=== PATIENT | female | born 1995 | race Caucasian/White ===

== ENCOUNTER → 2020-07-21 07:51 | Outpatient (CLI) | payer OTHER, SELFPAY ==
[2020-07-21 08:33] LABS: Basophils % 0.8 % (0.1-2.0); Eosinophils # 0.3 K/mm3 (0.0-0.4); Eosinophils % 4.7 % (0.1-12.0); Hematocrit 35.5 % (37.0-47.0); Hemoglobin 11.4 g/dL (12.2-16.2); Lymphocytes # 1.8 K/mm3 (0.7-4.5); Lymphocytes % 29.9 % (10-50); Mean Corpuscular HGB Conc 32.1 g/dL (31.8-35.4); Mean Corpuscular Hemoglobin 24.4 pg (27.0-31.2); Mean Corpuscular Volume 75.8 fl (81-99); Mean Platelet Volume 8.6 fl (7.4-10.4); Monocytes # 0.5 K/mm3 (0.1-1.0); Monocytes % 8.6 % (1.7-9.3); Neutrophils # 3.3 K/mm3 (1.8-7.8); Neutrophils % 56.1 % (37.0-80.0); Platelet Count 246 K/mm3 (142-424); Red Blood Count 4.69 M/mm3 (4.20-5.40); Red Cell Distribution Width 14.8 % (11.5-17.5); White Blood Count 5.9 K/mm3 (4.8-10.8)
[2020-07-21 11:58] LABS: Chloride 104 mmol/L (98-107); Potassium 4.1 mmoL/L (3.5-5.1); Sodium 139 mmol/L (136-145)
[2020-07-21 12:00] LABS: Alanine Aminotransferase 14 U/L (12-78); Aspartate Amino Transferase 20 U/L (14-36); Bilirubin,Total 0.8 mg/dl (0.2-1.3); Blood Urea Nitrogen 12 mg/dl (7-17); Estimated Glomerular Filt Rate 120 ml/min (>60); GFR (African American) 145 ML/MIN (>60)
[2020-07-21 12:01] LABS: Albumin Level 4.3 g/dl (3.5-5.0); Albumin/Globulin Ratio 1.4 (1.1-1.8); Alkaline Phosphatase 59 U/L (38-126); Anion Gap 15.1 mEq/L (5-15); Calcium 9.3 mg/dl (8.4-10.2); Carbon Dioxide 24 mmol/L (22.0-30.0); Chol/HDL Ratio 2.9 (1-3.5); Cholesterol 184 mg/dl (140-200); Glucose 89 mg/dl (74-100); HDL Cholesterol 63 mg/dl (40-60); Total Protein,Serum 7.3 g/dl (6.3-8.2); Triglycerides 60 mg/dl (30-150); VLDL Cholesterol 12 mg/dL (0-40)
[2020-07-21 12:09] LABS: 25-OH Vitamin D, Total 40.6 ng/mL (30-100)
[2020-07-21 12:12] LABS: Direct LDL Cholesterol 105.77 mg/dL (100-129)
[2020-07-21 13:30] LABS: Vitamin B12 700 pg/mL (239-931)
[2020-07-21 13:36] LABS: Thyroid Stimulating Hormone 2.58 uIU/mL (0.465-4.68)
[2020-07-25 20:12] LABS: Ferritin 4.97 ng/ml (6.24-137)
[2020-07-27 10:59] LABS: Iron 53 ug/dL (37-170)
[2020-07-27 11:09] LABS: Total Iron Binding Capacity 468 ug/dL (265-497)
== END ==
PROVIDERS: Visit Provider Internal Medicine Adolescent Medicine
DX: D64.9 Anemia, unspecified (principal); D50.9 Iron deficiency anemia, unspecified
CPT/HCPCS: 36415; 80053; 80061; 82306; 82607; 82728; 83540; 83550; 84443; 85025

== ENCOUNTER → 2022-12-21 15:55 | Outpatient (CLI) | payer OTHER, SELFPAY ==
--- NOTE | 2022-12-21 16:02 | XR_ITS ---
FINAL REPORT CLINICAL HISTORY: FOOT PAIN FINDINGS: Right foot Three views were obtained. There is no acute fracture or dislocation. The joint spaces appear normal. No soft tissue abnormality is identified. IMPRESSION: No acute process. Reviewed, Interpreted and Dictated by Van Ceballos III, MD Transcribed by Lauren Michelle Authenticated and [facility]
--- NOTE | 2022-12-21 16:02 | XR_ITS ---
FINAL REPORT CLINICAL HISTORY: SPRAIN OF RIGHT ANKLE FINDINGS: Right ankle Three views were obtained. There is no acute fracture or dislocation. The joint spaces appear normal. No soft tissue abnormality is identified. IMPRESSION: No acute process. Reviewed, Interpreted and Dictated by Van Ceballos III, MD Transcribed by Lauren Michelle Authenticated and [facility]
== END ==
PROVIDERS: PCP Internal Medicine Adolescent Medicine; Visit Provider Internal Medicine Adolescent Medicine
DX: M79.671 Pain in right foot (principal); M25.571 Pain in right ankle and joints of right foot; S93.401S Sprain of unspecified ligament of right ankle, sequela
CPT/HCPCS: 73610; 73630

== ENCOUNTER → 2023-01-25 15:34 | Outpatient (CLI) | payer OTHER, SELFPAY ==
--- NOTE | 2023-01-25 15:39 | MR_ITS ---
PROCEDURE INFORMATION: Exam: MR Right Lower Extremity Joint Without Contrast; Ankle Exam date and time: 01/25/2023 3:57 PM Age: 28 years old Clinical indication: Pain; Ankle; Right; Additional info: Sprain of right ankle TECHNIQUE: Imaging protocol: Magnetic resonance imaging of the right lower extremity without contrast. Exam focused on the ankle. COMPARISON: CR XR ANKLE WT BEARING RT MIN 3V 12/21/2022 4:10 PM FINDINGS: Bones/joints: No fracture or suspicious marrow signal. The medial and lateral support ligaments are intact. Otherwise unremarkable. LIGAMENTS: Distal tibiofibular syndesmosis: Unremarkable. No tear. Anterior talofibular ligament: Unremarkable. No tear. Posterior talofibular ligament: Unremarkable. No tear. Calcaneofibular ligament: Unremarkable. No tear. Deltoid ligament complex: Unremarkable. No tear. TENDONS: Flexor tendons of foot: Unremarkable as visualized. Tibialis posterior tendon: Unremarkable as visualized. Peroneal tendons: Unremarkable as visualized. Extensor tendons of foot: Unremarkable as visualized. Tibialis anterior tendon: Unremarkable as visualized. Achilles tendon: Unremarkable as visualized. Tarsal canal (Sinus tarsi): Unremarkable. Normal signal of the fat. Tarsal tunnel: Unremarkable. Muscles: Unremarkable. Soft tissues: Unremarkable. Plantar fascia: Plantar fascia is unremarkable. IMPRESSION: 1. No fracture or suspicious marrow signal. 2. The medial and lateral support ligaments are intact. 3. Otherwise unremarkable.
--- NOTE | 2023-01-25 15:40 | MR_ITS ---
PROCEDURE INFORMATION: Exam: MR Right Lower Extremity Other Than Joint Without Contrast; Foot Exam date and time: 01/25/2023 3:57 PM Age: 28 years old Clinical indication: Pain; Foot; Right; Additional info: Sprain of right ankle/ foot TECHNIQUE: Imaging protocol: Magnetic resonance imaging of the right lower extremity without contrast. Exam focused on the foot. COMPARISON: CR XR FOOT WT BEARING RT 3V 12/21/2022 4:10 PM FINDINGS: Bones/joints: No fracture or suspicious marrow signal. Otherwise unremarkable. LIGAMENTS: Lisfranc ligament: Unremarkable. No evidence of tear. TENDONS: Flexor tendons of foot: Unremarkable. No evidence of tear. Tibialis posterior tendon: Unremarkable as visualized. Peroneal tendons: Unremarkable as visualized. Extensor tendons of foot: Unremarkable. No evidence of tear. Tibialis anterior tendon: Unremarkable as visualized. Tarsal canal (Sinus tarsi): Unremarkable. Tarsal tunnel: Unremarkable. Muscles: No visualized tendinous or ligamentous pathology. Soft tissues: Unremarkable. Plantar fascia: Unremarkable as visualized. IMPRESSION: 1. No fracture or suspicious marrow signal. 2. No visualized tendinous or ligamentous pathology. 3. Otherwise unremarkable.
== END ==
PROVIDERS: PCP Internal Medicine Adolescent Medicine; Visit Provider Internal Medicine Adolescent Medicine
DX: M25.571 Pain in right ankle and joints of right foot (principal); S93.401S Sprain of unspecified ligament of right ankle, sequela
CPT/HCPCS: 73718; 73721

== ENCOUNTER → 2023-06-28 09:43 | Outpatient (CLI) | payer OTHER, SELFPAY ==
--- NOTE | 2023-06-28 09:48 | MR_ITS ---
FINAL REPORT CLINICAL HISTORY: STRAIN OF RIGHT ACHILLES TENDON. INSTABILITY IN ANKLE. MEDIAL AND POSTERIOR ANKLE PAIN COMPARISON: 01/25/2023 FINDINGS: Multiplanar MR imaging of the right ankle was performed without contrast. The bony structures are intact without evidence of fracture, bone bruise or marrow edema. No osteochondral lesion is identified. The mortise is intact. The ligaments are intact without evidence of injury. The Achilles tendon is intact. The supporting tendons about the ankle are intact. The posterior plantar aponeurosis is intact. No significant joint effusion is seen. The musculature is intact. There is no evidence of soft tissue mass or cyst. IMPRESSION: No significant internal derangement. Reviewed, Interpreted and Dictated by Scottie Rodriguez MD Transcribed by Glendy Shelby Authenticated and [facility]
== END ==
LOC: RAD 09:43
PROVIDERS: PCP Internal Medicine Adolescent Medicine; Visit Provider Podiatrist Foot & Ankle Surgery
DX: S86.011S Strain of right Achilles tendon, sequela (principal)
CPT/HCPCS: 73721

== ENCOUNTER 2024-02-03 08:44 | Outpatient (CLI) | payer OTHER, SELFPAY ==
[2024-02-03 09:41] LABS: Basophils # 0.1 K/mm3 (0-0.2); Basophils % 1.4 % (0.1-2.0); Eosinophils # 0.2 K/mm3 (0.0-0.4); Eosinophils % 4.5 % (0.1-12.0); Lymphocytes # 1.7 K/mm3 (0.7-4.5); Lymphocytes % 38.6 % (10-50); Mean Corpuscular HGB Conc 31.8 g/dL (31.8-35.4); Mean Corpuscular Hemoglobin 27.1 pg (27.0-31.2); Mean Corpuscular Volume 85.3 fl (81-99); Monocytes # 0.3 K/mm3 (0.1-1.0); Monocytes % 6.6 % (1.7-9.3); Neutrophils # 2.2 K/mm3 (1.8-7.8); Neutrophils % 48.8 % (37.0-80.0); Platelet Count 271 K/mm3 (142-424); Red Blood Count 5.16 M/mm3 (4.20-5.40); Red Cell Distribution Width 13.4 % (11.5-17.5); White Blood Count 4.5 K/mm3 (4.8-10.8)
[2024-02-03 10:17] LABS: Erythrocyte Sedimentation Rate 6 mm/hr (0-20)
[2024-02-03 10:32] LABS: Anion Gap 11.7 mEq/L (5-15); Blood Urea Nitrogen 13 mg/dl (7-17); Calcium 9.7 mg/dl (8.4-10.2); Carbon Dioxide 27 mmol/L (22.0-30.0); Chloride 106 mmol/L (98-107); Estimated Glomerular Filt Rate 98 ml/min (>60); GFR (African American) 118 ML/MIN (>60); Glucose 62 mg/dl (74-100); Potassium 3.7 mmoL/L (3.5-5.1); Sodium 141 mmol/L (136-145); Uric Acid 3.3 mg/dl (2.5-6.2)
[2024-02-04 14:12] LABS: Antinuclear Antibodies, IFA Negative (.)
[2024-02-11 09:03] LABS: Rheumatoid Factor IGA < 7 U (<7); Rheumatoid Factor IGM < 7 U (<7)
== END 2024-02-03 23:59 ==
LOC: LAB 08:45
PROVIDERS: PCP Internal Medicine Adolescent Medicine; Visit Provider Podiatrist Foot & Ankle Surgery
DX: M05.771 Rheumatoid arthritis with rheumatoid factor of right ankle and foot without organ or systems involvement (principal)
CPT/HCPCS: 36415; 80048; 84550; 85025; 85651; 86038; 86431